=== PATIENT | female | born 1935 | race Caucasian/White ===

== ENCOUNTER 2022-12-17 11:24 | Emergency (ER) | payer OTHER ==
[~2022-12-17] VITALS: Ht 162.6 cm; Wt 57.2 kg
[2022-12-17 11:24] VITALS: BP_SYST 105
[2022-12-17 15:12] VITALS: BP_SYST 131
[2022-12-18] MEDS ORDERED: LEVO88TA5 PO ×2 (12:00→12:05)
== END 2022-12-17 15:12 | disposition home or self-care (01) ==
LOC: SED 11:24
DX: S83.92XA Sprain of unspecified site of left knee, initial encounter (principal); Z79.899 Other long term (current) drug therapy; W01.0XXA Fall on same level from slipping, tripping and stumbling without subsequent striking against object, initial encounter; Y93.89 Activity, other specified; Y92.89 Other specified places as the place of occurrence of the external cause; Y99.8 Other external cause status
CPT/HCPCS: 73700-TC; 76376; 99284

== ENCOUNTER 2022-12-18 07:06 | Inpatient (IN) | payer OTHER ==
[~2022-12-18] VITALS: Ht 162.6 cm; Wt 65.3 kg
[2022-12-18 07:32] VITALS: BP_SYST 125
--- NOTE | 2022-12-18 08:00 | NUR ---
MELISSA FROM HOME C/O LEGS AND BACK PAIN, PLACE IN ROOM 3 AAOX4 SPEECH CLEAR AWAITING FOR EDP FOR INITIAL ASSESSMENT.
[2022-12-18 08:05] LABS: BASOPHILS % (AUTO) 0.2 % (0.0-2.0); EOSINOPHILS % (AUTO) 0.1 % (0.0-4.0); HEMATOCRIT 35.4 % (36-48); HEMOGLOBIN 12.4 g/dL (12.0-16.0); LYMPHOCYTES # (AUTO) 0.9 K/uL (1.0-5.5); LYMPHOCYTES % (AUTO) 8.8 % (20.5-51.5); MEAN CORPUSCULAR HEMOGLOBIN 32 pg (27-31); MEAN CORPUSCULAR HGB CONC 35 % (32-36); MEAN CORPUSCULAR VOLUME 93 fL (79.0-98.0); MONOCYTES # (AUTO) 0.6 K/uL (0.0-1.0); MONOCYTES % (AUTO) 5.3 % (1.7-9.3); NEUTROPHILS # (AUTO) 8.9 K/uL (1.8-7.7); NEUTROPHILS % (AUTO) 85.6 % (40.0-70.0); PLATELET COUNT (AUTO) 240 K/uL (130-430); RED BLOOD CELL COUNT(AUTO) 3.82 MIL/uL (4.2-6.2); RED CELL DISTRIBUTION WIDTH 13.1 % (9.0-15.0); WHITE BLOOD COUNT (AUTO) 10.4 K/uL (4.8-10.8)
[2022-12-18 08:15] LABS: PROTHROMBIN TIME 10.4 SECS (9.5-12.5)
[2022-12-18 08:31] LABS: ALANINE AMINOTRANSFERASE 48 U/L (12-78); ALBUMIN 3.2 g/dL (3.4-4.8); ANION GAP 13 (5-15); ASPARTATE AMINOTRANSFERASE 165 U/L (10-37); CALCIUM 8.7 mg/dL (8.4-11.0); CHLORIDE 90 mmol/L (98-107); CREATININE 2.82 mg/dL (0.55-1.30); GLUCOSE 92 mg/dL (70-99); TOTAL BILIRUBIN 0.8 mg/dL (0.0-1.0); UREA NITROGEN, BLOOD 35 mg/dL (8-21)
[2022-12-18 08:40] LABS: FREE T4 (FREE THYROXINE) 1.3 ng/dl (0.8-1.5); THYROID STIMULATING HORMONE 0.42 uIu/mL (0.36-3.74)
[2022-12-18 08:50] LABS: ACETONE, SERUM NEGATIVE (NEGATIVE)
[2022-12-18] MEDS ORDERED: NACL 0.9% 1,000 ML IV ONE (09:00)
[2022-12-18] MEDS ORDERED: SODIUM BICARBONATE 8.4% VIAL 50 MEQ/50 ML VIAL INJ ONE (09:00)
[2022-12-18 09:10] LABS: CKMB RELATIVE INDEX 1.6 (0.0-2.9); CREATINE KINASE MB 100.5 ng/mL (0-3.6)
[2022-12-18 09:14] LABS: BILIRUBIN,URINE NEGATIVE (NEGATIVE); BLOOD, URINE 2+ (NEGATIVE); CLARITY/URINE SL CLOUDY (CLEAR); COLOR,URINE YELLOW (YELLOW); GLUCOSE,URINE NEGATIVE (NEGATIVE); KETONES,URINE NEGATIVE (NEGATIVE); LEUKOCYTE ESTERASE ,URINE 2+ (NEGATIVE); NITRITE, URINE NEGATIVE (NEGATIVE); PH,URINE 5.5 (5.0-8.0); PROTEIN URINE TRACE (NEGATIVE); UROBILINOGEN,URINE 0.2 (0.2-1.0)
[2022-12-18 09:28] LABS: BACTERIA,URINE MODERATE /HPF (None Seen)
--- NOTE | 2022-12-18 09:45 | NUR ---
EDP SEEN PATIENT WITH ORDER JOE OUT.
--- NOTE | 2022-12-18 10:01 | NUR ---
PATIENT REMAINS IN BED NO ACUTE DISTRESS NOTED C/O BACK PAIN EDP MADE AWARE.
[2022-12-18] MEDS ORDERED: MUPIROCIN 2% TOPICAL OINTMENT 22 GM NS PRN (10:15)
[2022-12-18] MEDS ORDERED: ACETAMINOPHEN 325 MG TABLET PO PRN ×2 (10:15→11:00)
[2022-12-18] MEDS ORDERED: ONDANSETRON HCL 4 MG/2 ML VIAL IVP PRN (10:15)
[2022-12-18] MEDS ORDERED: POTASSIUM CHLORIDE 20 MEQ TAB.PRT.SR PO PRN (10:15)
[2022-12-18] MEDS ORDERED: MAGNESIUM SULFATE 50 ML IV PRN (10:15)
[2022-12-18] MEDS: NACL 0.9% 1,000 ML IV SCH ×2 (10:15→22:00)
[2022-12-18] MEDS ORDERED: DOCUSATE SODIUM 100 MG CAPSULE PO PRN (10:15)
[2022-12-18] MEDS ORDERED: MORPHINE 2 MG/ML INJ. SYRINGE IVP PRN (10:15)
[2022-12-18] MEDS ORDERED: HYDROcodone/ACETAMIN 5-325 MG TAB (NORCO/ VICODIN) PO ONE (10:30)
[2022-12-18] MEDS ORDERED: IBUPROFEN 800 MG TABLET PO ONE (10:30)
[2022-12-18] MEDS ORDERED: SODIUM BICARBONATE 8.4% JECT 50 MEQ/50 ML SYRINGE ONE (10:32)
[2022-12-18] MEDS ORDERED: ASPIRIN 81 MG TAB.CHEW PO ONE (11:00)
--- NOTE | 2022-12-18 11:46 | NUR ---
critical lab,value: [id number] Notified Marianne
[2022-12-18] MEDS ORDERED: LEVO88TA5 PO ×2 (12:00→12:05)
[2022-12-18] MEDS: cefTRIAXone 1 GM in D5W 50 ML IV SCH (14:00)
[2022-12-18] MEDS ORDERED: cefTRIAXone 1 GM VIAL ONE (18:29)
[2022-12-18] MEDS ORDERED: ASPIRIN 81 MG TAB.CHEW ONE (18:30)
--- NOTE | 2022-12-18 20:27 | NUR ---
pt resting in bed. pt on the monitor. pt c/o pain 04/16. will notify
--- NOTE | 2022-12-18 22:26 | NUR ---
Admission Note Received patient from ER with diagnosis of NON ST ELEVATED MYOCARDIAL INFARCTION. Initial Plan of Care discussed-patient verbalized understanding. Oriented to room, call light, pain management and safety. Addendum: 12/18/22 at 2227 by Richy Felder RN admitted 214
[2022-12-18 22:28] VITALS: BP_SYST 112
--- NOTE | 2022-12-18 22:45 | NUR ---
Pt admitted pt tele. Pt aox4. pt able to make needs known. iv in L hand infiltrated upon admission. pt refused new iv insert at this time. pt cleaned and repositioned. bed alarm on. call light within reach. will insert new iv in am
[2022-12-19] VITALS: BP_SYST 110
[2022-12-19] MEDS: NACL 0.9% 1,000 ML IV SCH ×2 (06:17→15:55)
[2022-12-19] MEDS: MORPHINE 2 MG/ML INJ. SYRINGE IVP PRN ×2 (06:17→20:29)
[2022-12-19 07:18] LABS: ANION GAP 10 (5-15); CALCIUM 8.4 mg/dL (8.4-11.0); CHLORIDE 93 mmol/L (98-107); CREATININE 1.63 mg/dL (0.55-1.30); GLUCOSE 72 mg/dL (70-99); UREA NITROGEN, BLOOD 33 mg/dL (8-21)
[2022-12-19 07:24] LABS: BASOPHILS % (AUTO) 0.2 % (0.0-2.0); EOSINOPHILS # (AUTO) 0.1 K/uL (0.0-0.4); EOSINOPHILS % (AUTO) 1.6 % (0.0-4.0); HEMATOCRIT 31.6 % (36-48); HEMOGLOBIN 11.1 g/dL (12.0-16.0); LYMPHOCYTES # (AUTO) 0.5 K/uL (1.0-5.5); LYMPHOCYTES % (AUTO) 7.2 % (20.5-51.5); MEAN CORPUSCULAR HEMOGLOBIN 33 pg (27-31); MEAN CORPUSCULAR HGB CONC 35 % (32-36); MEAN CORPUSCULAR VOLUME 94 fL (79.0-98.0); MONOCYTES # (AUTO) 0.6 K/uL (0.0-1.0); NEUTROPHILS # (AUTO) 6.3 K/uL (1.8-7.7); PLATELET COUNT (AUTO) 215 K/uL (130-430); RED BLOOD CELL COUNT(AUTO) 3.36 MIL/uL (4.2-6.2); RED CELL DISTRIBUTION WIDTH 12.6 % (9.0-15.0); WHITE BLOOD COUNT (AUTO) 7.6 K/uL (4.8-10.8)
[2022-12-19 07:56] VITALS: BP_SYST 106
--- NOTE | 2022-12-19 08:00 | NUR ---
Start of shift. Pt sitting up in bed eating her breakfast. Pt has O2 at 2L/nc on. Tele unit attached and intact at this time. IV in left wrist intact and patent at this time. Pt denies any needs. Call light within reach.
[2022-12-19] MEDS: ASPIRIN 81 MG TAB.CHEW PO SCH (08:55)
[2022-12-19] MEDS ORDERED: SIMV-345 PO (09:29)
[2022-12-19] MEDS ORDERED: DICY10SO PO (09:29)
[2022-12-19] MEDS ORDERED: LEVO88TA5 PO (09:29)
[2022-12-19] MEDS ORDERED: ALPR0.5T PO (09:29)
[2022-12-19] MEDS ORDERED: SERT25TA PO (09:29)
[2022-12-19] MEDS ORDERED: PRO40 PO (09:29)
[2022-12-19] MEDS ORDERED: VALS160T2 PO (09:29)
[2022-12-19] MEDS ORDERED: CYCL10TA24 PO (09:29)
[2022-12-19] MEDS ORDERED: OXYIR5 PO (09:29)
[2022-12-19 09:31] LABS: CKMB RELATIVE INDEX 1.6 (0.0-2.9); CREATINE KINASE MB 63.6 ng/mL (0-3.6)
[2022-12-19] MEDS: LEVOTHYROXINE SODIUM 0.088 MG TABLET PO SCH (11:22)
[2022-12-19 11:31] VITALS: BP_SYST 122
--- NOTE | 2022-12-19 11:50 | NUR ---
Note Pt had visit by PT - pt was unable to stand on her feet. Pt was also seen by Dr Diallo this morning at 0930am. Pt is having an echo at bedside at this time. XR of left ankle done at bedside. Pt resting in bed and denies any needs at this time. Call light within reach.
[2022-12-19] MEDS: cefTRIAXone 1 GM in D5W 50 ML IV SCH (13:38)
--- NOTE | 2022-12-19 13:40 | NUR ---
Note Dr Alvarado at bedside to assess pt and answer questions/concerns at this time.
--- NOTE | 2022-12-19 14:00 | NUR ---
Note Pt's son visiting at bedside. Questions/concerns were answered at this time.
--- NOTE | 2022-12-19 14:45 | NUR ---
DCP assessment completed. Pt informed about PT eval recommendations DC to SNF for PT. patient is agreeable to SNF. CM spoke with pt family Julissa and Harshad who are both agreeable to SNF placement.
[2022-12-19 17:16] VITALS: BP_SYST 140
--- NOTE | 2022-12-19 18:55 | NUR ---
End of shift Pt's non weight bearing custom brace at bedside - EDIL Orozco brought it over, on pt's bedside bureau, Dr Matthews (ortho) will come over tomorrow and put the brace on. Pt sitting up in bed and eating her dinner. IV in left hand intact and patent infusing IVF's well. Tele unit attached and intact all shift. No SOB/resp distress or chest pain/discomfort noted. Pt on O2 at 2L/nc. No needs noted at this time. Call light within reach.
[2022-12-19 20:00] VITALS: BP_SYST 139
[2022-12-20 02:02] VITALS: BP_SYST 129
[2022-12-20] MEDS: NACL 0.9% 1,000 ML IV SCH ×2 (04:16→14:08)
[2022-12-20] MEDS: LEVOTHYROXINE SODIUM 0.088 MG TABLET PO SCH (06:30)
[2022-12-20 07:13] LABS: BASOPHILS % (AUTO) 0.3 % (0.0-2.0); EOSINOPHILS # (AUTO) 0.3 K/uL (0.0-0.4); EOSINOPHILS % (AUTO) 4.6 % (0.0-4.0); HEMATOCRIT 30.1 % (36-48); HEMOGLOBIN 10.5 g/dL (12.0-16.0); LYMPHOCYTES # (AUTO) 0.7 K/uL (1.0-5.5); LYMPHOCYTES % (AUTO) 11.5 % (20.5-51.5); MEAN CORPUSCULAR HEMOGLOBIN 32 pg (27-31); MEAN CORPUSCULAR HGB CONC 35 % (32-36); MEAN CORPUSCULAR VOLUME 93 fL (79.0-98.0); MONOCYTES # (AUTO) 0.6 K/uL (0.0-1.0); MONOCYTES % (AUTO) 10.2 % (1.7-9.3); NEUTROPHILS # (AUTO) 4.6 K/uL (1.8-7.7); NEUTROPHILS % (AUTO) 73.4 % (40.0-70.0); PLATELET COUNT (AUTO) 232 K/uL (130-430); RED BLOOD CELL COUNT(AUTO) 3.25 MIL/uL (4.2-6.2); WHITE BLOOD COUNT (AUTO) 6.2 K/uL (4.8-10.8)
--- NOTE | 2022-12-20 07:32 | NUR ---
NOTES: INFORMED BY MANUFACTURER NURSE THAT THE PT IS DNR BUT DOES NOT HAVE PAPERWORK. CHECKED THE PT CHART AND THERE IS A POLST STATING THE PT IS DNR. ASKED CHARGE NURSE FOR CONFIRMATION OF WHAT ELSE IS NEEDED AND TOLD THAT THERE NEEDS TO BE A CONSENT FORM SIGNED BY HER ADMITTING DR. PRINTED A CONSENT FORM AND PUT IT IN PT CHART. WILL HAVE SIGN IT. Addendum: 12/20/22 at [address]N [address] alexander signed the pt consent form for dnr and it is in pt chart.
[2022-12-20 08:00] VITALS: BP_SYST 155
[2022-12-20 08:30] LABS: ALANINE AMINOTRANSFERASE 61 U/L (12-78); ALBUMIN 2.5 g/dL (3.4-4.8); ANION GAP 8 (5-15); ASPARTATE AMINOTRANSFERASE 115 U/L (10-37); CALCIUM 8.2 mg/dL (8.4-11.0); CHLORIDE 93 mmol/L (98-107); CREATININE 1.14 mg/dL (0.55-1.30); GLUCOSE 104 mg/dL (70-99); TOTAL BILIRUBIN 0.4 mg/dL (0.0-1.0); UREA NITROGEN, BLOOD 27 mg/dL (8-21)
[2022-12-20 08:50] LABS: CKMB RELATIVE INDEX 0.4 (0.0-2.9); CREATINE KINASE MB 7.4 ng/mL (0-3.6)
--- NOTE | 2022-12-20 08:50 | NUR ---
opening notes: pt in bed eating breakfast. pt has left ankle boot on and is non-weight bearing on left leg. no s/s of distress or pain reported at this time. breathing is even and unlabored on 2l nc 98%. all needs met at this time, safety checks made and call light within reach.
[2022-12-20] MEDS: MORPHINE 2 MG/ML INJ. SYRINGE IVP PRN (09:10)
[2022-12-20] MEDS: ASPIRIN 81 MG TAB.CHEW PO SCH (09:54)
--- NOTE | 2022-12-20 10:27 | NUR ---
Attending MD DR PANIAGUA WAS PAGED RE: ORDER FOR DVT PROHYLAXIS. LEFT A VOICE MESSAGE.
--- NOTE | 2022-12-20 11:43 | NUR ---
EDIL spoke with pt son regarding discharge plannning. EDIL informed son that suggested DC to [facility]. requesting that his mother be discharged to [facility] as they are familiar with this facility and like it. informed that a referral was already faxed to [facility] but will fax a referral to [facility] as well.
[2022-12-20 12:15] VITALS: BP_SYST 142
--- NOTE | 2022-12-20 12:16 | NUR ---
MD HOMA GUPTA ATTEMPTED FOR THE 2ND TIME TO CALL DR PANIAGUA. PT NEEDS A DVT PROPHYLACTIC. LISTENING FOR RETURN CALL Addendum: 12/20/22 at 1456 by Sindi Olsen LVN NO RESPONSE AFTER SEVERAL ATTEMPTS FROM DR PANIAGUA.
--- NOTE | 2022-12-20 12:17 | NUR ---
2ND CALL FOR THE ATTENDING MD DR CORRIGAN FOR THE DVT PROPHYLAXIS. LEFT A VOICE MESSAGE ON HER CP.
--- NOTE | 2022-12-20 13:21 | NUR ---
Dietitian Recommendations * Mechanical diet * Ordered Chocolate Ensure BID (provides 700 kcals and 26 g PRO per day). * Snacks BID; RD noted in computrition Submitted for LE Denney by Paula Gallardo, MPH, RD Please see Nutrition Assessment for further details. Thanks! Addendum: 12/20/22 at [address] Amended: Links added.
[2022-12-20] MEDS: cefTRIAXone 1 GM in D5W 50 ML IV SCH (13:28)
--- NOTE | 2022-12-20 14:02 | NUR ---
EDIL spoke with Marija at [facility]; patient family choice. Room 221A. Marija informed that per attending MD notes possible DC tomorrow.
[2022-12-20 15:06] VITALS: BP_SYST 135
--- NOTE | 2022-12-20 15:27 | NUR ---
ROUNDS: PT IN BED A/O X4. FAMILY AT BEDSIDE. NO S/S OF DISTRESS OR PAIN REPORTED. BREATHING EVEN AND UNLABORED ON 2L NC. FAMILY IS AWARE PT MAY DISCHARGED TOMORROW 12/21 TO [facility]. ALL NEEDS MET AT THIS MET TIME, SAFETY CHECKS MADE AND CALL LIGHT WITHIN REACH.
--- NOTE | 2022-12-20 16:14 | NUR ---
PHYSICAL THERAPY CO-SIGN The Physical Therapy Progress Notes documented by Lead Database Administrator have been reviewed. Reviewed/Co-Signed by: Arcadio Joyce Documentation Done by:SOFIA CUNNINGHAM Addendum: 12/20/22 at 1614 by Arcadio Joyce PT Amended: Links added.
--- NOTE | 2022-12-20 16:27 | NUR ---
: contacted dr marks for dvt prophylactic. order placed for heparin 5000 subcut q12hr.
--- NOTE | 2022-12-20 18:44 | NUR ---
CLOSING NOTES: PT IN BED EATING DINNER. CLEANED PT,CHANGED LINENS HAS SHE HAD URINATED AND REPOSITIONED PT WITH PILLOW SUPPORT. NO S/S OF DISTRESS OR PAIN REPORTED. BREATHING EVEN AND UNLABORED ON 2L NC. ALL NEEDS MET AT THIS TIME, SAFETY CHECKS MADE AND CALL LIGHT WITHIN REACH.
[2022-12-20] MEDS ORDERED: HYDROcodone/ACETAMIN 5-325 MG TAB (NORCO/ VICODIN) PO PRN (19:30)
[2022-12-20 20:00] VITALS: BP_SYST 146
[2022-12-20] MEDS: HEPARIN SODIUM,PORCINE 5,000 UNITS/ML VIAL SUBCUT SCH (20:54)
[2022-12-21] VITALS: BP_SYST 122
[2022-12-21 06:29] LABS: BASOPHILS % (AUTO) 0.5 % (0.0-2.0); EOSINOPHILS # (AUTO) 0.3 K/uL (0.0-0.4); EOSINOPHILS % (AUTO) 5.4 % (0.0-4.0); HEMATOCRIT 28.2 % (36-48); HEMOGLOBIN 9.9 g/dL (12.0-16.0); LYMPHOCYTES # (AUTO) 1.2 K/uL (1.0-5.5); MEAN CORPUSCULAR HEMOGLOBIN 33 pg (27-31); MEAN CORPUSCULAR HGB CONC 35 % (32-36); MEAN CORPUSCULAR VOLUME 92 fL (79.0-98.0); MONOCYTES # (AUTO) 0.6 K/uL (0.0-1.0); MONOCYTES % (AUTO) 11.2 % (1.7-9.3); NEUTROPHILS # (AUTO) 3.6 K/uL (1.8-7.7); NEUTROPHILS % (AUTO) 61.9 % (40.0-70.0); PLATELET COUNT (AUTO) 227 K/uL (130-430); RED BLOOD CELL COUNT(AUTO) 3.05 MIL/uL (4.2-6.2); RED CELL DISTRIBUTION WIDTH 12.9 % (9.0-15.0); WHITE BLOOD COUNT (AUTO) 5.7 K/uL (4.8-10.8)
[2022-12-21] MEDS: LEVOTHYROXINE SODIUM 0.088 MG TABLET PO SCH (06:30)
[2022-12-21 06:50] LABS: ANION GAP 6 (5-15); CALCIUM 7.8 mg/dL (8.4-11.0); CHLORIDE 98 mmol/L (98-107); CREATININE 0.95 mg/dL (0.55-1.30); GLUCOSE 93 mg/dL (70-99); UREA NITROGEN, BLOOD 21 mg/dL (8-21)
[2022-12-21 07:25] LABS: CREATINE KINASE MB 1.9 ng/mL (0-3.6)
[2022-12-21 08:00] VITALS: BP_SYST 158
--- NOTE | 2022-12-21 08:22 | NUR ---
opening notes: pt in bed eating breakfast. pt has left ankle boot on and is non-weight bearing on left leg. no s/s of distress or pain reported at this time. breathing is even and unlabored on 2l nc 97%. pt told me she woke up confused on where she was it and about what happened to her at 3:30 this morning. hotel night auditor nurse told she reoriented the pt. Dr. Santos was notified this morning about the event by myself and the hotel night auditor nurse. no new orders given. pt is a/o x4. she is oriented to person, place, time, event, year and month. all needs met at this time, safety checks made and call light within reach.
[2022-12-21] MEDS ORDERED: POLYETHYLENE GLYCOL 3350, 17 GM/ POWD.PACK PO ONE (08:30)
[2022-12-21] MEDS: ASPIRIN 81 MG TAB.CHEW PO SCH (08:43)
[2022-12-21] MEDS: HEPARIN SODIUM,PORCINE 5,000 UNITS/ML VIAL SUBCUT SCH (08:49)
[2022-12-21] MEDS ORDERED: ACYCLOVIR 400 MG TABLET PO ONE (09:30)
--- NOTE | 2022-12-21 09:43 | NUR ---
Discharge summary noted. Dr Santos called to see if she is going discharge patient today. Need a DC to SNF order. Patient has a bed ready at [facility]. room 221A.
--- NOTE | 2022-12-21 10:09 | NUR ---
Patient will be discharged today to [facility] room 221A. Transportation arranged by [facility]. p# [phone]. ETA 3pm. will let RN and family know. will place packet on unit
--- NOTE | 2022-12-21 10:17 | NUR ---
CM notified pt son David Adams [phone] of patient discharge to SNF today. all questions and concerns addressed.
[2022-12-21] MEDS: NACL 0.9% 1,000 ML IV SCH (10:24)
--- NOTE | 2022-12-21 11:16 | NUR ---
EDIL learned in meeting this morning that patient was discovered to have a shingles outbreak. RN reports the vesicle rash not open and on the right chest extending upward to her neck. Patient on acyclovoir 800mg Q8 until 12/31. EDIL reached out to [facility] and spoke with orthopedic assistant Whitney who states she is going to speak with her director to see if they have any isolation beds available today. Monique asked if they dont have any today then possibly tomorrow. Whitney to call back EDIL. call back # given.
--- NOTE | 2022-12-21 11:46 | NUR ---
CM received a call from Lani at [facility] regarding iso bed. They can accomodate and patient will now go to room 212A. will update nurse and family.
[2022-12-21 12:00] VITALS: BP_SYST 125
[2022-12-21 12:48] VITALS: BP_SYST 125
[2022-12-21] MEDS: cefTRIAXone 1 GM in D5W 50 ML IV SCH (13:39)
[2022-12-21] MEDS ORDERED: ACYCLOVIR 400 MG TABLET PO SCH (14:00)
[2022-12-21 16:00] VITALS: BP_SYST 129
[2022-12-22] MEDS ORDERED: POLYETHYLENE GLYCOL 3350, 17 GM/ POWD.PACK PO SCH (09:00)
== END 2022-12-21 20:12 | DRG 562 ==
LOC: SED 07:06 → STU 09:57
PROVIDERS: ADMIT Family Medicine; ATTEND Family Medicine
PROC: 0QSKXZZ Reposition Left Fibula, External Approach (ICD-10-PCS; principal; 2022-12-21)
PROC: 0QSHXZZ Reposition Left Tibia, External Approach (ICD-10-PCS; 2022-12-21)
DX: S82.845A Nondisplaced bimalleolar fracture of left lower leg, initial encounter for closed fracture (principal); I21.A1 Myocardial infarction type 2; N17.0 Acute kidney failure with tubular necrosis; E44.1 Mild protein-calorie malnutrition; E87.1 Hypo-osmolality and hyponatremia; M62.82 Rhabdomyolysis; N39.0 Urinary tract infection, site not specified; S83.512A Sprain of anterior cruciate ligament of left knee, initial encounter; R74.01 Elevation of levels of liver transaminase levels; E87.8 Other disorders of electrolyte and fluid balance, not elsewhere classified; X58.XXXA Exposure to other specified factors, initial encounter; E89.0 Postprocedural hypothyroidism; Z20.822 Contact with and (suspected) exposure to COVID-19; I10 Essential (primary) hypertension; F32.A Depression, unspecified; M13.0 Polyarthritis, unspecified; E78.00 Pure hypercholesterolemia, unspecified; Y93.89 Activity, other specified; Y92.89 Other specified places as the place of occurrence of the external cause; Y99.8 Other external cause status; Z87.891 Personal history of nicotine dependence; Z68.24 Body mass index [BMI] 24.0-24.9, adult
CPT/HCPCS: 36415; 70450-TC; 71045; 72131; 73560-TC; 76376; 76770; 80048; 80053; 81000; 82009; 82550; 82553; 83605; 83735; 83880; 84439; 84443; 84484; 85025; 85610-TC; 85730-TC; 87081; 87086; 93005; 93306; 96361; 96365; 96375; 97110-GP; 97530-GP; 99285; G0378; J0696; J1644; J2270; J7060